=== PATIENT | female | born 1945 | race Caucasian/White ===

== ENCOUNTER → 2017-01-08 | Outpatient (CLI) | payer MEDICARE, BC ==
--- NOTE | 2017-01-10 08:59 | MM ---
Reason for exam: screening (asymptomatic). Last mammogram was performed 1 year and 9 months ago. History: Patient is postmenopausal. Physical Findings: A clinical breast exam by your physician is recommended on an annual basis and results should be correlated with mammographic findings. MG 3D Screening Mammo W/Cad Bilateral CC and MLO view(s) were taken. Prior study comparison: April 14, 2015, bilateral MG screening mammo w CAD. October 01, 2013, bilateral digital screening mammo w/CAD. The breast tissue is almost entirely fat. No significant changes when compared with prior studies. ASSESSMENT: Negative, BI-RAD 1 RECOMMENDATION: Routine screening mammogram of both breasts in 1 year.
== END | disposition home or self-care (01) ==
LOC: RADMAMWWP 13:10
PROVIDERS: ATTEND Family Medicine
DX: Z12.31 Encounter for screening mammogram for malignant neoplasm of breast (principal)
CPT/HCPCS: 77063; G0202

== ENCOUNTER 2017-06-14 13:51 | Emergency (ER) | payer MEDICARE, BC ==
[2017-06-14 13:59] VITALS: TEMP 98.5
[2017-06-14] MEDS ORDERED: HYDROmorphone 1 MG/ML 1 ML SYRINGE IVP STA (14:35)
--- NOTE | 2017-06-14 14:42 | ED ---
Fall HPI - General Chief Complaint: Fall Stated Complaint: Right hip dislocation Source: patient, EMS Mode of arrival: EMS - History of Present Illness Initial Comments: 71 yo female with a pmh of bilateral hip and knee replacements presenting for evaluation of right hip pain. She states she was shoe shopping and bent forward to fix a strap on the shoe. As she was bending down she felt a pop in her right hip and significant pain. When she stood back up she could tell that her right leg was significantly shorter than the left. Concerned that she had a hip dislocation she came to the ED. She denies any other injuries or pain. - Related Data Home Medications Medication Instructions Recorded Confirmed Atorvastatin [Lipitor] 20 mg PO DAILY 06/14/17 06/14/17 Irbesartan/Hydrochlorothiazide 1 tab PO DAILY 06/14/17 06/14/17 [Irbesartan-Hctz 300-12.5 mg Tb] Meloxicam [Meloxicam] 15 mg PO DAILY 06/14/17 06/14/17 Previous Rx's Medication Instructions Recorded HYDROcodone/APAP 5-325MG [[place] 1 - 2 tab PO Q6HR PRN #14 tab 06/14/17 5-325] Ibuprofen [Motrin] 600 mg PO Q6HR PRN #20 tab 06/14/17 Allergies Allergy/AdvReac Type Severity Reaction Status Date / Time No Known Allergies Allergy Verified 06/14/17 14:24 Review of Systems ROS Statement: Those systems with pertinent positive or pertinent negative responses have been documented in the HPI. ROS Other: All systems not noted in ROS Statement are negative. Constitutional: Denies: fever, chills Eyes: Denies: eye pain, eye discharge ENT: Denies: ear pain, throat pain Respiratory: Denies: cough, dyspnea Cardiovascular: Denies: chest pain, palpitations Endocrine: Denies: fatigue, polydipsia Gastrointestinal: Denies: abdominal pain, nausea, vomiting Genitourinary: Denies: urgency, dysuria Musculoskeletal: Reports: arthralgia (right hip pain). Denies: back pain Skin: Denies: rash, lesions Neurological: Denies: headache, weakness Psychiatric: Denies: anxiety, depression Hematological/Lymphatic: Denies: easy bleeding, easy bruising Past Medical History Past Medical History: Hyperlipidemia, Hypertension Additional Past Medical History / Comment(s): Arthritis History of Any Multi-Drug Resistant Organisms: None Reported Past Surgical History: Orthopedic Surgery, Tubal Ligation Additional Past Surgical History / Comment(s): Bilater hip and knee replacement , lap band surgery, Past Psychological History: No Psychological Hx Reported Smoking Status: Former smoker Past Alcohol Use History: None Reported Past Drug Use History: None Reported General Exam Limitations: physical limitation General appearance: alert, in no apparent distress Head exam: Present: atraumatic, normocephalic, normal inspection Eye exam: Present: normal appearance, PERRL, EOMI. Absent: scleral icterus, conjunctival injection, periorbital swelling ENT exam: Present: normal exam, mucous membranes moist Neck exam: Present: normal inspection. Absent: tenderness, meningismus, lymphadenopathy Respiratory exam: Present: normal lung sounds bilaterally. Absent: respiratory distress, wheezes, rales, rhonchi, stridor Cardiovascular Exam: Present: regular rate, normal rhythm, normal heart sounds. Absent: systolic murmur, diastolic murmur, rubs, gallop, clicks GI/Abdominal exam: Present: soft, normal bowel sounds. Absent: distended, tenderness, guarding, rebound, rigid Rectal exam: Present: deferred Extremities exam: Present: tenderness (right hip), normal capillary refill, other (decreased ROM of right hip, right leg shorter than left). Absent: pedal edema Back exam: Present: normal inspection Neurological exam: Present: alert, oriented X3, CN II-XII intact Psychiatric exam: Present: normal affect, normal mood Skin exam: Present: warm, dry, intact, normal color. Absent: rash Course Vital Signs 06/14/17 06/14/17 06/14/17 13:53 15:50 16:21 Temperature 98.5 F Pulse Rate 78 72 78 Respiratory 17 17 17 Rate Blood Pressure 131/60 149/66 129/72 O2 Sat by Pulse 97 92 L Oximetry 06/14/17 06/14/17 06/14/17 16:29 16:40 16:45 Temperature Pulse Rate 71 79 Respiratory 17 18 18 Rate Blood Pressure 132/72 138/63 123/57 O2 Sat by Pulse 95 95 95 Oximetry 06/14/17 06/14/17 17:18 17:45 Temperature Pulse Rate 63 79 Respiratory 18 17 Rate Blood Pressure 100/51 103/55 O2 Sat by Pulse 98 97 Oximetry Procedures - Orthopedic Fracture Reduction Fracture #1 Consent Obtained: verbal consent, written consent Time Out Performed: Yes Side: right Fracture Reduction Location: femur Analgesia: procedural sedation Technique: direct manipulation, traction/counter-traction Post Reduction X-rays Demonstrate: anatomical reduction Post-Reduction Neuro Exam: intact Post-Reduction Vascular Exam: intact Splint Applied: No Patient Tolerated Procedure: well - Procedural Sedation Procedural Sedation Start Time: 16:10 Procedural Sedation Stop Time: 16:40 Indications: fracture/dislocation reduction Presedation Evaluation: right hip dislocation; pt states extreme flexion of hip resulting in "pop" sound and sensation with resultant shortening of her right leg and internal rotation ASA Class: II Mallampati Airway Score: 1 Preparation: educational therapy teacher applied, pulse oximeter, capnometry used, suction/ airway equipment at bedside, IV secured IV Etomidate Dose (mgs): 12 Complications: none Patient Tolerated Procedure: well Medical Decision Making - Medical Decision Making 71 yo female presenting with right hip pain. States hearing a pop in the hip and a shortened leg after bending forward. On PE she has a shorter right leg compared to the left and has pain to palpation over the hip. Concern for right hip prosthesis dislocation. Will obtain labs, xray, and provide pain control for initial work up and prepare for conscious sedation if dislocated. Xray confirmed dislocation and pt was prepped for conscious sedation and reduction. The patient tolerated the reduction well and there were no complications. Post reduction xrays show appropriate anatomy and the pt reported relief of pain and feeling like she was back to normal. She was observed until clinically at her baseline. She was assisted to her feet and ambulated without difficulty. Advised to follow up with PCP and orthopedic surgeon. Given return instructions. Pt acknowledged an understanding of this information and agreed with this plan of care. She was also given pain control options. - Lab Data Result diagrams: 06/14/17 14:50 06/14/17 14:50 Lab Results 06/14/17 06/14/17 Range/Units 14:50 14:50 WBC 6.8 (3.8-10.6) k/uL RBC 4.59 (3.80-5.40) m/uL Hgb 14.6 (11.4-16.0) gm/dL Hct 41.9 (34.0-46.0) % MCV 91.2 (80.0-100.0) fL MCH 31.8 (25.0-35.0) pg MCHC 34.9 (31.0-37.0) g/dL RDW 13.3 (11.5-15.5) % Plt Count 295 (150-450) k/uL Neutrophils % 73 % Lymphocytes % 19 % Monocytes % 5 % Eosinophils % 1 % Basophils % 1 % Neutrophils # 4.9 (1.3-7.7) k/uL Lymphocytes # 1.3 (1.0-4.8) k/uL Monocytes # 0.3 (0-1.0) k/uL Eosinophils # 0.1 (0-0.7) k/uL Basophils # 0.0 (0-0.2) k/uL Sodium 140 (137-145) mmol/L Potassium 4.0 (3.5-5.1) mmol/L Chloride 105 (98-107) mmol/L Carbon Dioxide 24 (22-30) mmol/L Anion Gap 11 mmol/L BUN 23 H (7-17) mg/dL Creatinine 0.60 (0.52-1.04) mg/dL Est GFR (MDRD) Af Amer >60 (>60 ml/min/1.73 sqM) Est GFR (MDRD) Non-Af >60 (>60 ml/min/1.73 sqM) Glucose 179 H (74-99) mg/dL Calcium 9.1 (8.4-10.2) mg/dL 06/14/17 14:59 Sinus rhythm with PACs and left axis deviation. Disposition Clinical Impression: Hip dislocation, right Disposition: HOME SELF-CARE Condition: Stable Instructions: Hip Dislocation (ED) Additional Instructions: Please use medication as discussed. Please follow up with family doctor if symptoms have not improved over the next two days. Please return to the emergency room if your symptoms increase or worsen or for any other concerns. Prescriptions: HYDROcodone/APAP 5-325MG [[place] 5-325] 1 - 2 tab PO Q6HR PRN #14 tab PRN Reason: Analgesia Ibuprofen [Motrin] 600 mg PO Q6HR PRN #20 tab PRN Reason: Pain Referrals: Stanley Aguila MD [Primary Care Provider] - 1-2 days Time of Disposition: 18:09
[2017-06-14 15:04] LABS: Basophils % (A) 1 %; CH 31.2; CHCM 34.3; Eosinophils # (A) 0.1 k/uL (0-0.7); Eosinophils % (A) 1 %; HCT 41.9 % (34.0-46.0); HDW 2.48; HGB 14.6 gm/dL (11.4-16.0); Luc # (Auto) 0.12; Luc % (Auto) 2; Lymphocytes # (A) 1.3 k/uL (1.0-4.8); Lymphocytes % (A) 19 %; MCH 31.8 pg (25.0-35.0); MCHC 34.9 g/dL (31.0-37.0); MCV 91.2 fL (80.0-100.0); Mean Platelet Volume 6.6; Monocytes # (A) 0.3 k/uL (0-1.0); Monocytes % (A) 5 %; Neutrophils # (A) 4.9 k/uL (1.3-7.7); Neutrophils % (A) 73 %; RBC 4.59 m/uL (3.80-5.40); RDW 13.3 % (11.5-15.5); WBC 6.8 k/uL (3.8-10.6); WBC (Perox) 6.95
[2017-06-14 15:14] LABS: Anion Gap 11 mmol/L; Blood Urea Nitrogen 23 mg/dL (7-17); Calcium 9.1 mg/dL (8.4-10.2); Carbon Dioxide 24 mmol/L (22-30); Chloride 105 mmol/L (98-107); Glucose 179 mg/dL (74-99); Non-African American GFR(MDRD) >60 (>60 ml/min/1.73 sqM); Sodium 140 mmol/L (137-145)
--- NOTE | 2017-06-14 15:23 | XR ---
EXAMINATION TYPE: XR Hip RT and AP Pelvis DATE OF EXAM: 06/14/2017 COMPARISON: Bilateral hip radiographs dated 05/22/2007. HISTORY: Popping noise heard after bending over with subsequent right hip pain. TECHNIQUE: A single AP view of the pelvis is obtained. Two views of the right hip are obtained. FINDINGS: Bilateral hip arthroplasty is seen with dislocation of the femoral head component on the ri ght in a cephalad position. The femoral head overlies the superior acetabulum and is displaced medial ly. No hardware fracture is evident. Degenerative changes are appreciated of the lumbosacral spine an d sacroiliac joints with heterotopic ossification of the femurs. No dislocation or periprosthetic loo sening on the left. IMPRESSION: Right hip arthroplasty cephalad dislocation. No hardware fracture or findings to suggest periprosthetic loosening.
[2017-06-14] MEDS ORDERED: MIDAZOLAM (PF) 1 MG/ML 5 ML VIAL IV STA (15:45)
[2017-06-14] MEDS ORDERED: fentaNYL (PF) 50 MCG/ML 2 ML AMP IVP ONE (15:45)
[2017-06-14] MEDS ORDERED: MIDAZOLAM HCL 5 MG/ML IV STA ×2 (15:54→15:58)
[2017-06-14] MEDS ORDERED: ETOMIDATE 2 MG/ML 10 ML VIAL IVP STA ×2 (16:08→16:10)
[2017-06-14] MEDS ORDERED: ONDANSETRON 4 MG/2 ML VIAL IVP STA (16:38)
--- NOTE | 2017-06-14 16:50 | XR ---
Fluoroscopy INDICATION: Postreduction right hip FINDINGS: Right femoral prosthesis is present. Femoral head articulates with the acetabular component. No acute fractures are identified. IMPRESSIONS: 1. Reduction of a right hip dislocation. No fractures are evident.
[2017-06-14 17:47] VITALS: BP 103/55; PULSE 79; RESP 17
== END 2017-06-14 18:29 | disposition home or self-care (01) ==
LOC: EC 13:51
DX: T84.020A Dislocation of internal right hip prosthesis, initial encounter (principal); I10 Essential (primary) hypertension; E78.5 Hyperlipidemia, unspecified; M19.90 Unspecified osteoarthritis, unspecified site; Z87.891 Personal history of nicotine dependence; Z96.642 Presence of left artificial hip joint; Z96.653 Presence of artificial knee joint, bilateral; Z79.1 Long term (current) use of non-steroidal anti-inflammatories (NSAID); Z79.899 Other long term (current) drug therapy; X50.1XXA Overexertion from prolonged static or awkward postures, initial encounter; Y93.89 Activity, other specified
CPT/HCPCS: 36415; 93005; 80048; 85025; 73502; 99285; 27265; 99152; 99153; 96374; J1170

== ENCOUNTER → 2018-05-16 | Outpatient (CLI) | payer MEDICARE, BC ==
--- NOTE | 2018-05-16 11:21 | MM ---
Reason for exam: screening (asymptomatic). Last mammogram was performed 1 year and 4 months ago. History: Patient is postmenopausal. Physical Findings: A clinical breast exam by your physician is recommended on an annual basis and results should be correlated with mammographic findings. MG 3D Screening Mammo W/Cad Bilateral CC and MLO view(s) were taken. Prior study comparison: January 08, 2017, bilateral MG 3d screening mammo w/cad. April 14, 2015, bilateral MG screening mammo w CAD. The breast tissue is almost entirely fat. There is chronic nodularity in the left subareolar region. No significant changes when compared with prior studies. ASSESSMENT: Negative, BI-RAD 1 RECOMMENDATION: Routine screening mammogram of both breasts in 1 year.
== END | disposition home or self-care (01) ==
LOC: RADMAMWWP 07:57
PROVIDERS: ATTEND Obstetrics & Gynecology
DX: Z12.31 Encounter for screening mammogram for malignant neoplasm of breast (principal)
CPT/HCPCS: 77063; 77067

== ENCOUNTER 2025-05-26 12:18 | Emergency (ER) | payer MEDICARE ==
[2025-05-26 12:21] VITALS: BP 149/78; PULSE 91; RESP 18; TEMP 97.9
--- NOTE | 2025-05-26 12:49 | ED ---
ENT HPI - General Source: patient Mode of arrival: ambulatory Limitations: no limitations <Sonia Adkins - Last Filed: 05/26/25 14:48> <Harinder Bello - Last Filed: 05/27/25 07:17> - General Chief complaint: ENT Stated complaint: Nose bleed Time Seen by Provider: 05/26/25 12:47 - History of Present Illness Initial comments: 79-year-old female with hypertension, hyperlipidemia, history of lap band surgery, bilateral hip and knee replacement here for recurrent nosebleeds. Patient reported that she has been having nosebleeds on and off since May 12 5-6 episodes since then and over time they have been getting harder to control with the epistaxis clips and ice packs on her nose. She also reported that she has a clot in her nose but once clot get dislodged she starts bleeding again. She denies blood thinner use. She has no other source of bleeding. Blood goes back into throat. Picks nose a lot. Takes baby aspirin, meloxicam every night. No recent trauma to the nose, family bleeding history, shortness of breath, lightheadedness, dizziness, vision changes, chest pain, headaches, hemarthrosis, dysuria, hematuria, hematochezia, gum bleeding, bruising. (Sonia Adkins) - Related Data Home Medications Medication Instructions Recorded Confirmed Atorvastatin [Lipitor] 20 mg PO DAILY 06/14/17 06/14/17 Irbesartan/Hydrochlorothiazide 1 tab PO DAILY 06/14/17 06/14/17 [Irbesartan-Hctz 300-12.5 mg Tb] Meloxicam 15 mg PO DAILY 06/14/17 06/14/17 Previous Rx's Medication Instructions Recorded HYDROcodone/APAP 5-325MG [[place] 1 - 2 tab PO Q6HR PRN #14 tab 06/14/17 5-325] Ibuprofen [Motrin] 600 mg PO Q6HR PRN #20 tab 06/14/17 Allergies Allergy/AdvReac Type Severity Reaction Status Date / Time No Known Allergies Allergy Verified 05/26/25 12:21 Review of Systems ROS Other: All systems not noted in ROS Statement are negative. <Sonia Adkins - Last Filed: 05/26/25 14:48> ROS Other: All systems not noted in ROS Statement are negative. <Harinder Bello - Last Filed: 05/27/25 07:17> ROS Statement: Those systems with pertinent positive or pertinent negative responses have been documented in the HPI. Past Medical History Past Medical History: Hyperlipidemia, Hypertension Additional Past Medical History / Comment(s): Arthritis History of Any Multi-Drug Resistant Organisms: None Reported Past Surgical History: Orthopedic Surgery, Tubal Ligation Additional Past Surgical History / Comment(s): Bilater hip and knee replacement, lap band surgery, Past Psychological History: No Psychological Hx Reported Smoking Status: Never smoker Past Alcohol Use History: None Reported Past Drug Use History: None Reported <Sonia Adkins - Last Filed: 05/26/25 14:48> General Exam Limitations: no limitations <Sonia Adkins - Last Filed: 05/26/25 14:48> - General Exam Comments Initial Comments: Physical examination: Vital signs reviewed General: non toxic, no distress, appears at stated age Head: atraumatic, normocephalic, symmetric, epistaxis clips noted with notable dried blood at the end of the nares Mouth: no lip lesion, mucus membranes moist, throat shows small amount of blood clots Cardiovascular: S1S2 reg, no murmur Lungs: CTA bilateral, no rhonchi, no rales, no accessory muscle use Abdominal: soft, nondistended, nontender to palpation, no guarding Ext: muscle strength 5 out of 5 in all 4 extremities grossly, no gross muscle atrophy, no contractures, positive dorsalis pedis pulse bilateral, no edema Neuro: no gross focal neuro deficits Psych: Alert and oriented x3, appropriate affect and mood (Sonia Adkins) Course <Sonia Adkins - Last Filed: 05/26/25 14:48> Vital Signs 05/26/25 12:19 Temperature 97.9 F Pulse Rate 91 Respiratory 18 Rate Blood Pressure 149/78 O2 Sat by Pulse 95 Oximetry - Reevaluation(s) Reevaluation #1: 05/26/25 14:18 Patient's epistaxis stable so far. She has not had any worsening of bleeding or gushing at this time. (Sonia Adkins) Reevaluation #2: 05/26/25 14:43 Rechecked nasal passages without nasal clips and noted some dried blood. Added another spray of Afrin and rechecked in a 5 minutes. Patient's bleeding has not worsened after second spray of Afrin. (Sonia Adkins) Medical Decision Making - Lab Data Result diagrams: 05/26/25 13:31 05/26/25 13:31 <Sonia Adkins - Last Filed: 05/26/25 14:48> - Lab Data Result diagrams: 05/26/25 13:31 05/26/25 13:31 <Harinder Bello - Last Filed: 05/27/25 07:17> - Medical Decision Making Was pt. sent in by a medical professional or institution (, [employer], HOMIC[employer] COMMANDING OFFICER, urgent care, hospital, or correction...) When possible be specific @ -[No] Did you speak to anyone other than the patient for history (EMS, parent, family, police, friend...)? What history was obtained from this source @ -[No] Did you review nursing and triage notes (agree or disagree)? Why? @ -[I reviewed and agree with nursing and triage notes] Were old charts reviewed (outside hosp., previous admission, EMS record, old EKG, old radiological studies, urgent care reports/EKG's, correction records)? Report findings @ -[No old charts were reviewed] Differential Diagnosis? @ -Differential Bleed: Head injury, nasal septum deviation, hematologic disorder, malignancy, nasal trauma this is not meant to be an all-inclusive list. EKG interpreted by me (3pts min.). @ -Not applicable X-rays interpreted by me (1pt min.). @ -None done CT interpreted by me (1pt min.). @ -None done U/S interpreted by me (1pt. min.). @ -None done What testing was considered but not performed or refused? (CT, X-rays, U/S, labs)? Why? @ -None What meds were considered but not given or refused? Why? @ -None Did you discuss the management of the patient with other professionals (professionals i.e. , [employer]IAN[employer], [employer] COMMANDING OFFICER, lab, RT, psych nurse, social sciences department chair, exceptional children teacher assistant, teacher, fire prevention officer, watch caser)? Give summary @ -Dr. Hawk, supervising physician Was smoking cessation discussed for >3mins.? @ -No Was critical care preformed (if so, how long)? @ -No Were there social determinants of health that impacted care today? How? (Homelessness, low income, unemployed, alcoholism, drug addiction, transportati on, low edu. Level, literacy, decrease access to med. care, assisted, rehab)? @ -No Was there de-escalation of care discussed even if they declined (Discuss DNR or withdrawal of care, Hospice)? DNR status @ -No What co-morbidities impacted this encounter? (DM, HTN, Smoking, COPD, CAD, Cancer, CVA, ARF, Chemo, Hep., AIDS, mental health diagnosis, sleep apnea, morbid obesity)? @ -None Was patient admitted / discharged? Hospital course, mention meds given and route, prescriptions, significant lab abnormalities, going to OR and other pertinent info. @ -Discharge. Patient was given Afrin sprays in bilateral naris and cold water. CBC and coagulation panels checked. Had normal white count and slightly elevated hemoglobin. Patient's epistaxis has not worsened since his stay. She is cleared for discharge and was instructed not to dislodge the clot or blow her nose for the time being. Also advised to follow-up with PCP Undiagnosed new problem with uncertain prognosis? @ -No Drug Therapy requiring intensive monitoring for toxicity (Heparin, Nitro, Insulin, Cardizem)? @ -No Were any procedures done? @ -No Diagnosis/symptom? @ -Recurrent epistaxis Acute, or Chronic, or Acute on Chronic? @ -Acute Uncomplicated (without systemic symptoms) or Complicated (systemic symptoms)? @ -Uncomplicated Side effects of treatment? @ -No Exacerbation, Progression, or Severe Exacerbation? @ -No Poses a threat to life or bodily function? How? (Chest pain, [place], [place], pneumonia, PE, COPD, DKA, ARF, appy, cholecystitis, CVA, Diverticulitis, Homicidal, Suicidal, threat to staff... and all critical care pts) @ -No (Sonia Adkins) I personally saw the patient and performed the critical portion of the service. I discussed the patient care with the resident. I directed management, care planning and final disposition of the patient. This includes, but not limited to, review of all lab work, radiological studies, EKG's, consultations, vital signs, and nursing notes. EKG interpreted by me (3pts min.) @As above X-Rays interpreted by me (1 pt min.) @None CT interpreted by me ( 1pt min.) @None U/S interpreted by me (1 pt min.) @None Critical care time of 0 minutes excluding separately billable procedures was spent in conjunction with critical care activities provided by the Resident and Attending simultaneously. I was present during no procedures for all critical portions of the procedure and as immediately available to furnish service during the entire procedure. (Harinder Bello) - Lab Data Lab Results 05/26/25 05/26/25 05/26/25 Range/Units 13:31 13:31 13:31 WBC 6.61 (4.50-10.00) 10*3/uL RBC 5.11 (4.10-5.20) 10*6/uL Hgb 16.0 H (12.0-15.0) g/dL Hct 47.2 H (37.2-46.3) % MCV 92.4 (80.0-97.0) fL MCH 31.3 (27.0-32.0) pg MCHC 33.9 (32.0-37.0) g/dL Plt Count 290 (140-440) 10*3/uL MPV 9.2 L (9.5-12.2) fL Immature Gran % (Auto) 0.3 % Neutrophils % 69.9 % Lymphocytes % 20.4 % Monocytes % 7.1 % Eosinophils % 1.5 % Basophils % 0.8 % Immature Gran # 0.02 (0.00-0.04) 10*3/uL Neutrophils # 4.62 (1.80-7.70) 10*3/uL Lymphocytes # 1.35 (0.90-5.00) 10*3/uL Monocytes # 0.47 (0.20-1.00) 10*3/uL Eosinophils # 0.10 (0.04-0.35) 10*3/uL Basophils # 0.05 (0.00-0.10) 10*3/uL PT 11.8 (10.0-12.5) sec INR 1.1 (<1.2) Sodium 140 (137-145) mmol/L Potassium 4.1 (3.5-5.1) mmol/L Chloride 101 (98-107) mmol/L Carbon Dioxide 25 (22-30) mmol/L Anion Gap 14 mmol/L BUN 21 H (7-17) mg/dL Creatinine 0.55 (0.52-1.04) mg/dL Est GFR (CKD-EPI)AfAm >90 (>60 ml/min/1.73 sqM) Est GFR (CKD-EPI)NonAf >90 (>60 ml/min/1.73 sqM) Glucose 148 H (74-99) mg/dL Calcium 10.1 (8.4-10.2) mg/dL Total Bilirubin 0.8 (0.2-1.3) mg/dL AST 30 (14-36) U/L ALT 35 H (4-34) U/L Alkaline Phosphatase 86 (38-126) U/L Total Protein 7.6 (6.3-8.2) g/dL Albumin 4.5 (3.5-5.0) g/dL Disposition Is patient prescribed a controlled substance at d/c from ED?: No Time of Disposition: 14:43 <Sonia Adkins - Last Filed: 05/26/25 14:48> <Harinder Bello - Last Filed: 05/27/25 07:17> Clinical Impression: Epistaxis Disposition: HOME SELF-CARE Instructions (If sedation given, give patient instructions): Nosebleed (ED) Additional Instructions: Advised not to pick at the clock, only dab on bleeds and not to blow the nose for some time. Follow-up with PCP in 1 to 2 days Referrals: Ketty Aleman MD [Primary Care Provider] - 1-2 days
[2025-05-26] MEDS: OXYMETAZOLINE 0.05% NASL SPRAY 1 SPRAY BOTTLE NASAL STA (13:38)
[2025-05-26 13:43] LABS: INR 1.1 (<1.2); Prothrombin Time 11.8 sec (10.0-12.5)
[2025-05-26 13:57] LABS: ALT 35 U/L (4-34); AST 30 U/L (14-36); African American GFR (CKD) >90 (>60 ml/min/1.73 sqM); Albumin 4.5 g/dL (3.5-5.0); Alkaline Phosphatase 86 U/L (38-126); Anion Gap 14 mmol/L; Blood Urea Nitrogen 21 mg/dL (7-17); Calcium 10.1 mg/dL (8.4-10.2); Carbon Dioxide 25 mmol/L (22-30); Chloride 101 mmol/L (98-107); Glucose 148 mg/dL (74-99); Non-African American GFR(CKD) >90 (>60 ml/min/1.73 sqM); Potassium 4.1 mmol/L (3.5-5.1); Sodium 140 mmol/L (137-145); Total Protein 7.6 g/dL (6.3-8.2)
[2025-05-26 14:25] LABS: Basophils # (A) 0.05 10*3/uL (0.00-0.10); Basophils % (A) 0.8 %; Eosinophils # (A) 0.10 10*3/uL (0.04-0.35); Eosinophils % (A) 1.5 %; HCT 47.2 % (37.2-46.3); HGB 16.0 g/dL (12.0-15.0); Lymphocytes # (A) 1.35 10*3/uL (0.90-5.00); Lymphocytes % (A) 20.4 %; MCH 31.3 pg (27.0-32.0); MCHC 33.9 g/dL (32.0-37.0); MCV 92.4 fL (80.0-97.0); Monocytes # (A) 0.47 10*3/uL (0.20-1.00); Monocytes % (A) 7.1 %; Neutrophils # (A) 4.62 10*3/uL (1.80-7.70); Neutrophils % (A) 69.9 %; Platelet Count 290 10*3/uL (140-440); RBC 5.11 10*6/uL (4.10-5.20); RDW 14.0 % (11.5-14.5); WBC 6.61 10*3/uL (4.50-10.00)
== END 2025-05-26 14:52 | disposition home or self-care (01) ==
LOC: EC 12:18
DX: R04.0 Epistaxis (principal)
CPT/HCPCS: 36415; 80053; 85025; 85610; 99283